=== PATIENT | male | born 1975 | race Caucasian/White ===

== ENCOUNTER 2020-09-19 04:14 | Emergency (ER) | payer SELFPAY ==
[2020-09-19 04:25] VITALS: BP 136/93; PULSE 90; RESP 20; TEMP 36.7; O2SAT 90; BMI 20.5
[2020-09-19] MEDS: sodium chloride 0.9% 1,000 ML 999 ML IV (04:35)
[2020-09-19 04:36] VITALS: BP 147/87; PULSE 78; O2SAT 95
[2020-09-19 04:45] LABS: INR 0.88 (0.8-1.2)
[2020-09-19 04:55] LABS: Alanine Aminotransferase 208 U/L (0-41); Alkaline Phosphatase 85 IU/L (40-130); Anion Gap 17.5 (5-19); Aspartate Amino Transferase 224 U/L (0-40); Blood Urea Nitrogen 5 mg/dL (6-20); C Reactive Protein 0.3 mg/L (0.0-4.9); Calcium 9.1 mg/dL (8.5-10.5); Carbon Dioxide 23 mmol/L (22-29); Chloride 98 mmol/L (98-107); Globulin 3.2 g/dL (1.3-4.6); Glucose 108 mg/dL (65-115); Lipase 51 U/L (13-60); Osmolality Calculated 278 mOsm/kg (285-295); Potassium 3.5 mmol/L (3.5-5.1); Sodium 135 mmol/L (136-145); Total Bilirubin 0.5 mg/dL (0.15-1.2); Total Protein 8.2 g/dL (6.6-8.7)
[2020-09-19 04:57] LABS: Alcohol Level 312 mg/dL (0-10)
[2020-09-19 05:01] LABS: Basophils % 0.5 %; Eosinophils % 0.5 %; Hemoglobin 15.7 g/dL (11.7-16.6); Lymphocytes # 1.6 10^3/uL (0.8-4.8); Lymphocytes % 28.9 %; Mean Corpuscular HGB Conc 34.9 g/dL (30.0-36.0); Mean Corpuscular Hemoglobin 32.5 pg (28.0-34.0); Mean Corpuscular Volume 93.2 fL (80-94); Mean Platelet Volume 10.8 fL (7.4-10.4); Monocytes # 0.4 10^3/uL (0.2-0.9); Monocytes % 7.1 %; Neutrophils # 3.42 10^3/uL (1.8-7.7); Neutrophils % 62.8 %; Nucleated Red Blood Cells % 0 %; Platelet Count 113 10^3/cmm (130-400); Red Blood Count 4.83 10^6/uL (4.1-5.3); Red Cell Distribution Width 14.4 % (12.1-15.1); White Blood Count 5.5 10^3/uL (4.0-10.0)
--- NOTE | 2020-09-19 05:23 | ED_ITS ---
HPI - Abdominal Pain General: Chief Complaint: Abdominal Pain Stated Complaint: abd pain Time Seen by Provider: 09/19/20 04:49 History of Present Illness: HPI narrative: 85-year-old intoxicated male presents with right-sided belly pain. He states the pain has been going on for a month or so. He was seen at an outside facility, and told he may have the beginnings of appendicitis . He has had diarrhea, with some vomiting on and off. He says the pain has been worse for the last week. He has had sweats at home. He has not measured a fever. Evidently, no imaging was done at the previous facility. MD elicited complaint: abdominal pain Pertinent past history: other Onset (ago): week(s) Pain Consistency: intermittent Location: RLQ Quality: cramping and stabbing Radiation: none Migration to: no migration Exacerbating factors: nothing Associated Symptoms: Reports chills, diarrhea, loose stools, nausea and vomiting; Denies coffee ground emesis, constipation, fever(s) and hematemesis Review of Systems Const: Reports: chills and body aches; Denies: fever(s) Eyes: Denies: change in vision Card: Denies: chest pain or palpitations Resp: Reports: non-productive cough; Denies: dyspnea or productive cough GI: Reports: nausea, vomiting and diarrhea; Denies: hematemesis, coffee ground emesis or constipation Neuro: Reports: dizziness; Denies: headache(s) Physical Exam Const: COMMON NORMALS: no acute distress EXAM LIMITATIONS: other limitations GENERAL APPEARANCE: odor of alcohol detected ORIENTATION/CONSCIOUSNESS: Yes Other orientation findings (Intoxicated) Chest: COMMONS NORMALS: normal inspection of the chest Resp: COMMON NORMALS: normal respiratory effort, No use of accessory muscles and clear to auscultation bilaterally AUSCULTATION: clear to auscultation bilaterally Cardio: COMMON NORMALS: regular rate and regular rhythm RATE: regular rate RHYTHM: regular rhythm GI: COMMON NORMALS: Normal to inspection, nondistended, normoactive bowel sounds present, Soft to palpation and non-tender INSPECTION: Yes other (No bed shake tenderness.) PALPATION: Yes Soft to palpation Course Vital Signs: Vital signs: Vital Signs Temperature 98.1 F 09/19/20 04:25 Pulse Rate 80 09/19/20 05:57 Respiratory Rate 17 09/19/20 05:57 Blood Pressure 114/91 09/19/20 05:57 Pulse Oximetry 98 09/19/20 05:57 MDM - Abdominal Pain MDM Narrative: Medical decision making narrative: 45-year-old male, told he had the beginnings of appendicitis a month ago at an outside facility. He presents with continued right-sided belly pain. His alcohol level is 312. His white blood cell count is 5.5. CRP is 0.3. Highly unlikely this patient has appendicitis, given the fact that he is not really even tender. Urinalysis is pending. Provided no hematuria, no imaging needed at this point. He will be ready for discharge pending results of urine. Lab Data: Labs: Lab Results 09/19/20 09/19/20 09/19/20 Range/Units 04:30 04:30 04:30 WBC 5.5 (4.0-10.0) 10^3/ uL RBC 4.83 (4.1-5.3) 10^6/u L Hgb 15.7 (11.7-16.6) g/dL Hct 45.0 (42.0-52.0) % MCV 93.2 (80-94) fL MCH 32.5 (28.0-34.0) pg MCHC 34.9 (30.0-36.0) g/dL RDW 14.4 (12.1-15.1) % Plt Count 113 L (130-400) 10^3/c mm MPV 10.8 H (7.4-10.4) fL Neut % (Auto) 62.8 % Lymph % (Auto) 28.9 % [place] % (Auto) 7.1 % Eos % (Auto) 0.5 % Baso % (Auto) 0.5 % Neut # (Auto) 3.42 (1.8-7.7) 10^3/u L Lymph # (Auto) 1.6 (0.8-4.8) 10^3/u L Churchill # (Auto) 0.4 (0.2-0.9) 10^3/u L Eos # (Auto) 0.0 (0.0-0.8) 10^3/u L Baso # (Auto) 0.0 (0.0-0.1) 10^3/u L Nucleated RBC % (a uto) 0 % Nucleated RBCs # 0.0 /100WBC PT 12.20 (12.1-14.9) SECO NDS INR 0.88 (0.8-1.2) Sodium 135 L (136-145) mmol/L Potassium 3.5 (3.5-5.1) mmol/L Chloride 98 (98-107) mmol/L Carbon Dioxide 23 (22-29) mmol/L Anion Gap 17.5 (5-19) BUN 5 L (6-20) mg/dL Creatinine 0.6 L (0.7-1.2) mg/dL GFR Calculation 145.0 H (90-130) mL/min Glucose 108 (65-115) mg/dL Calculated Osmolal ity 278 L (285-295) mOsm/k g Calcium 9.1 (8.5-10.5) mg/dL Total Bilirubin 0.5 (0.15-1.2) mg/dL AST 224 H (0-40) U/L ALT 208 H (0-41) U/L Alkaline Phosphata se 85 (40-130) IU/L C-Reactive Protein 0.3 (0.0-4.9) mg/L Total Protein 8.2 (6.6-8.7) g/dL Albumin 5.0 (3.5-5.2) g/dL Globulin 3.2 (1.3-4.6) g/dL Lipase 51 (13-60) U/L Ethyl Alcohol 312 H* (0-10) mg/dL Discharge Plan Discharge Patient Disposition: Home Clinical Impression: Abdominal pain Qualifiers: Abdominal location: right lower quadrant Qualified Code(s): R10.31 - Right lower quadrant pain Alcohol intoxication Qualifiers: Complication of substance-induced condition: uncomplicated Qualified Code(s): F10.920 - Alcohol use, unspecified with intoxication, uncomplicated Condition: Stable Discharge Orders: Discharge ED (Routine); Ordered 09/19/20 Ordered By: Simba Vargas Discharge Diet: Advance as tolerated Discharge Activity: Increase activity as tolerated Patient Instructions: Alcohol Intoxication (ED), Abdominal Pain (ED) Activity Restrictions/Additional Instructions: Return for fever greater than 100, vomiting liquids or medications, other destiney rning symptoms. Abstain from alcohol, as it may be waking your symptoms worse over time. Follow-up with your doctor within the next 3 to 4 days. Coding Level of Care Code ED [place] for Chg Fwd Exam Detailed
[2020-09-19 05:40] LABS: Slide Review Slide Review Perform
[2020-09-19] MEDS: ketorolac 30 mg/mL INJ IVP (05:55)
[2020-09-19 05:57] VITALS: BP 114/91; PULSE 80; RESP 17; O2SAT 98
[2020-09-19 06:17] VITALS: BP 117/69; PULSE 68; RESP 14; O2SAT 96
[2020-09-19 06:18] LABS: Add Urine Microscopic? NO
[2020-09-19 06:21] LABS: Bilirubin Urine Neg (Negative); Blood Urine Neg (Negative); Glucose Urine UA Norm (Normal); Ketones Urine Negative (Negative); Leukocyte Esterase Urine Negative (Negative); Nitrate Urine Negative (Negative); Protein Urine Neg (Negative); Specific Gravity, Urine 1.005 (1.005-1.030); Urine Appearance Clear (CLEAR); Urine Color Straw (Yellow); Urobilinogen Urine Norm (Negative); pH Urine 7 (5-7)
[2020-09-19 06:33] VITALS: BP 125/85; PULSE 68; RESP 18; O2SAT 95
== END 2020-09-19 06:36 | disposition home or self-care (01) ==
PROVIDERS: Emergency Provider Emergency Medicine
DX: R10.31 Right lower quadrant pain (principal); F10.920 Alcohol use, unspecified with intoxication, uncomplicated; Y90.9 Presence of alcohol in blood, level not specified
CPT/HCPCS: 80053; 80307; 81003; 83690; 85025; 85610; 86140; 96361; 96374; 99283; J1885; J7030

== ENCOUNTER → 2023-07-11 09:44 | Outpatient (BNVA) | payer BC, MEDICAID, SELFPAY | PROVIDERS: Visit Provider Podiatrist Foot & Ankle Surgery | DX: M20.41 Other hammer toe(s) (acquired), right foot; M20.42 Other hammer toe(s) (acquired), left foot; L60.3 Nail dystrophy; M77.42 Metatarsalgia, left foot | CPT/HCPCS: 73630 ==